=== PATIENT | male | born 1995 | race African-American/Black ===

== ENCOUNTER 2017-07-01 14:58 | Emergency (ER) | payer OTHER ==
[~2017-07-01] VITALS: Ht 182.9 cm; Wt 80.0 kg
[2017-07-01 15:09] VITALS: BP 138/63; PULSE 69; RESP 16; TEMP 98; O2SAT 99
[2017-07-01] MEDS ORDERED: DIPH25CA PO (21:23)
[2017-07-01] MEDS ORDERED: ZANT150T2 PO (21:23)
[2017-07-01] MEDS ORDERED: PRED20 PO (21:23)
--- NOTE | 2017-07-01 21:23 | PD ---
HPI Chief Complaint: Skin Problem Time Seen by Provider: 21:07 Travel History International Travel<30 days: No Contact w/Intl Traveler<30days: No Traveled to known affect area: No History of Present Illness HPI The patient is a 21-year-old -[place] male who presents to emergency department for rash. The patient developed a rash several days ago and started on the neck and then spread to the scalp, chest, back, legs, and arms. He denies any involvement of the hands, palms, or soles of the feet. Patient has had a similar rash in the past that resolved. He has been using a new lotion, Jergens, but states he has been using it for several weeks and has had no previous allergic reactions to Jergens lotion. He denies any swelling of the tongue, lips, wheezing, or shortness of breath. He does have a history of eczema. He denies any associated fever, chills, sweats, or recent viral infections. PFSH Past Medical History Narrative Medical Eczema Past Surgical History Surgical History: No Previous Surgery Social History Tobacco Use: No Allergies-Medications (Allergen,Severity, Reaction): Coded Allergies: No Known Allergies (Unverified , 07/01/17) Review of Systems Except as stated in HPI: all other systems reviewed are Neg General / Constitutional: No: Fever HENT: No: Sore Throat, Congestion Respiratory: No: Shortness of Breath Gastrointestinal: No: Nausea, Vomiting, Abdominal Pain Musculoskeletal: No: Myalgias Skin: Positive Rash, Positive Itching Physical Exam Narrative GENERAL: Awake, alert, pleasant 21-year-old male who appears his stated age and is in no acute respiratory distress. SKIN: Focused skin assessment warm/dry. Patient has a maculopapular rash that is slightly elevated across the neck as well as the thorax, abdomen, proximal legs, proximal arms. No involvement of the palms. HEAD: Atraumatic. Normocephalic. EYES: Pupils equal and round. No scleral icterus. No injection or drainage. ENT: No nasal bleeding or discharge. Mucous membranes pink and moist. No angioedema noted of the uvula, tongue, or lips. NECK: Trachea midline. No JVD. CARDIOVASCULAR: Regular rate and rhythm. No murmur appreciated. RESPIRATORY: No accessory muscle use. Clear to auscultation. Breath sounds equal bilaterally. No wheezing noted. MUSCULOSKELETAL: No obvious deformities. No clubbing. No cyanosis. No edema. NEUROLOGICAL: Awake and alert. No obvious cranial nerve deficits. Motor grossly within normal limits. Normal speech. PSYCHIATRIC: Appropriate mood and affect; insight and judgment normal. Data Data Last Documented VS Vital Signs Date Time Temp Pulse Resp B/P (MAP) Pulse Ox O2 Delivery O2 Flow Rate FiO2 07/01/17 15:09 98.0 69 16 138/63 (88) 99 Orders Orders Prednisone (Deltasone) (07/01/17 21:30) Famotidine (Pepcid) (07/01/17 21:30) Diphenhydramine (Benadryl) (07/01/17 21:30) [facility] Medical Decision Making Medical Screen Exam Complete: Yes Emergency Medical Condition: Yes Medical Record Reviewed: Yes Differential Diagnosis Differential diagnosis includes allergic reaction, dermatitis, topical dermatitis, eczema. Narrative Course The patient appears to have a dermatitis, possibly from lotion versus idiopathic. The patient was administered prednisone 60 mg orally, Pepcid 20 mg orally, Benadryl 25 mg orally. He will be discharged home on steroids and antihistamines. He is advised to follow-up with a primary physician and/or band cutting machine operator if symptoms persist. Diagnosis Primary Impression: Dermatitis Patient Instructions: General Instructions Additional Instructions: Medications as directed. Stop using Carlos and try another lotion. Follow-up with a primary physician and/or band cutting machine operator if symptoms persist. Med/Other Pt SpecificInfo: Prescription(s) given Scripts Ranitidine (Zantac) 150 Mg Tab 150 MG PO BID for Reduce Stomach Acid for 4 Days, #8 TAB 0 Refills Prov: Kris Mukherjee MD 07/01/17 Diphenhydramine (Diphenhydramine) 25 Mg Cap 25 MG PO Q6H Y for ALLERGIES, #20 CAP 0 Refills Prov: Kris Mukherjee MD 07/01/17 Prednisone (Prednisone) 20 Mg Tab 40 MG PO DAILY for 4 Days, #8 TAB 0 Refills Take 40 mg (2 tablets) daily for 5 days Prov: Kris Mukherjee MD 07/01/17 Disposition: 01 DISCHARGE HOME Condition: Stable Kris Mukherjee MD Jul 01, 2017 21:23
[2017-07-01] MEDS ORDERED: FAMOTIDINE 20 MG TAB PO ONE (21:30)
[2017-07-01] MEDS ORDERED: predniSONE 20 MG TAB PO ONE (21:30)
[2017-07-01] MEDS ORDERED: diphenhydrAMINE HCL 25 MG CAP PO ONE (21:30)
== END 2017-07-01 21:48 | disposition home or self-care (01) ==
LOC: NEPD 14:58
DX: L30.9 Dermatitis, unspecified (principal)
CPT/HCPCS: 99283; J7512

== ENCOUNTER 2017-07-18 17:41 | Emergency (ER) | payer OTHER ==
[~2017-07-18] VITALS: Ht 182.9 cm; Wt 81.5 kg
[~2017-07-18 17:41] MED LIST: DIPH25CA PO; PRED20 PO; ZANT150T2 PO
[2017-07-18 17:49] VITALS: BP 137/60; PULSE 75; RESP 18; TEMP 98.3; O2SAT 99
[2017-07-18] MEDS ORDERED: TRIA.1%T TOPICAL (18:38)
--- NOTE | 2017-07-18 18:48 | PD ---
HPI Chief Complaint: Skin Problem Time Seen by Provider: 18:28 Travel History International Travel<30 days: No Contact w/Intl Traveler<30days: No Traveled to known affect area: No History of Present Illness HPI 21-year-old male presents to the emergency room for evaluation of itchy rash to his entire body. Patient states he came for the same 2 weeks ago and was put on prednisone. States while taking the medication his rash cleared but as soon as he stopped it return. States return at the same severity. It is no worse and not improved from prior. He denies any new environmental, medication, or food exposures. States he stopped using the Jergens lotion that he has been using previously. No chronic medical conditions or daily medications. He does report history of eczema but never this severe. [facility] Social History Alcohol Use: No Tobacco Use: No Substance Use: No Allergies-Medications (Allergen,Severity, Reaction): Coded Allergies: No Known Allergies (Unverified , 07/01/17) Reported Meds & Prescriptions Reported Meds & Active Scripts Active Triamcinolone Topical (Triamcinolone Acetonide) 0.1% Cream 1 Applic TOPICAL BID Zantac (Ranitidine HCl) 150 Mg Tab 150 Mg PO BID 4 Days Diphenhydramine (Diphenhydramine HCl) 25 Mg Cap 25 Mg PO Q6H PRN Prednisone 20 Mg Tab 40 Mg PO DAILY 4 Days Take 40 mg (2 tablets) daily for 5 days Review of Systems Except as stated in HPI: all other systems reviewed are Neg Physical Exam Narrative GENERAL: Well-nourished, well-developed patient. SKIN: Focused skin assessment warm/dry. Thickened, lichenified, scaling skin to the bilateral lateral neck folds. She has small areas of hyperpigmentation throughout his body; some areas are raised. No burrowing or breakfast, lunch, dinner sign. HEAD: Normocephalic. EYES: No scleral icterus. No injection or drainage. NECK: Supple, trachea midline. No JVD or lymphadenopathy. CARDIOVASCULAR: Regular rate and rhythm without murmurs, gallops, or rubs. RESPIRATORY: Breath sounds equal bilaterally. No accessory muscle use. PSYCHIATRIC: No delusional thought processes. No hallucinations. Data Data Last Documented VS Vital Signs Date Time Temp Pulse Resp B/P (MAP) Pulse Ox O2 Delivery O2 Flow Rate FiO2 07/18/17 17:49 98.3 75 18 137/60 (50) [address] [facility] Medical Decision Making Medical Screen Exam Complete: Yes Emergency Medical Condition: Yes Medical Record Reviewed: Yes Differential Diagnosis Atopic dermatitis, allergic reaction, viral infection, fungal infection Narrative Course 21-year-old male with history of eczema presents to the emergency room for evaluation of itchy rash to his entire body. Rash has been present for the past several weeks. He came to the emergency room 2 weeks ago for the same and was given prednisone. States while on prednisone the rash completely cleared but it returned to sinus he stopped. Patient denies any new environmental, medication, or food exposures. The rash does not appear allergic in nature. Symptoms are consistent with atopic dermatitis. Patient will be discharged with prescription for triamcinolone cream. Told to follow-up with a jewelry sales representative or return for worsening symptoms. He understands and agrees to plan. Diagnosis Primary Impression: Atopic dermatitis Qualified Codes: L20.9 - Atopic dermatitis, unspecified Referrals: Assistant Food Service Manager Additional Instructions: Rest and drink plenty of fluids. Apply cream twice daily. Follow-up with a primary care physician. Return to the emergency room for worsening symptoms. Med/Other Pt SpecificInfo: Prescription(s) given Scripts Triamcinolone Topical (Triamcinolone Topical) 0.1% Cream 1 APPLIC TOPICAL BID for Inflammation, #1 TUBE 0 Refills Prov: Boom Mendez MD 07/18/17 Disposition: 01 DISCHARGE HOME Condition: Stable Lora Evans Jul 18, 2017 18:48
== END 2017-07-18 19:04 | disposition home or self-care (01) ==
LOC: NEPK 17:41
DX: L20.9 Atopic dermatitis, unspecified (principal)
CPT/HCPCS: 99282